=== PATIENT | male | born 1965 | race Hispanic/Latino ===

== ENCOUNTER 2022-08-24 21:14 | Emergency (ER) | payer OTHER ==
[~2022-08-24] VITALS: Ht 167.6 cm; Wt 109.0 kg
[~2022-08-24 21:14] MED LIST: CEFTR1IV IV; CLON0.1T PO; MORP1VIA7 IV; NS1000 IV; ONDA4AMP IV; PANT40VI IV
[2022-08-24 23:01] VITALS: BP 134/77
== END 2022-08-24 23:06 ==
LOC: EDH 21:14
DX: R68.89 Other general symptoms and signs (principal); Z53.21 Procedure and treatment not carried out due to patient leaving prior to being seen by health care provider
CPT/HCPCS: 99281